=== PATIENT | female | born 1950 | race Caucasian/White ===

== ENCOUNTER 2019-03-28 14:41 | Emergency (ER) | payer MEDICARE ==
[~2019-03-28] VITALS: Ht 170.2 cm; Wt 83.5 kg
[2019-03-28 15:05] VITALS: Ht 170.2 cm; Wt 83.5 kg
[2019-03-28] MEDS ORDERED: SOD CHLORIDE 0.9% 1,000 ML IV STA (16:15)
[2019-03-28] MEDS ORDERED: morphine 4 MG/ML VIAL IV STA (16:15)
[2019-03-28] MEDS ORDERED: ONDANSETRON 4 MG INJ IV STA (16:15)
[2019-03-28] MEDS ORDERED: LOPE2CAP PO (18:34)
--- NOTE | 2019-03-28 18:35 | ERD ---
ER Documentation Chief Complaint Chief Complaint pt has diarhhea and weakness , unable to ambulate r/t weakness HPI Patient is a 68-year-old female with hypertension, seizures, and diabetes who presents with diarrhea. She had a physical at [facility] today and was sent to the ER because the PA was concerned about the frequency of diarrhea. She was having about 10 episodes per day. She had near syncope today. She had symptoms which started on Wednesday. She has diffuse weakness because of the diarrhea. [facility] in [place]. She has nausea but no vomiting. There is no blood in the diarrhea. There is no fevers. Upon review of old medical records this is the patient's first visit to the emergency department. ROS All systems reviewed and are negative except as per history of present illness. Medications Home Meds Active Scripts Loperamide Hcl* (Imodium*) 2 Mg Capsule, 2 MG PO .AFTER EA LOOSE BM PRN for DIARRHEA, #10 TAB Prov:NORIS LUCAS MD 03/28/19 Allergies Allergies: Coded Allergies: No Known Allergy (Unverified , 03/28/19) PMhx/Soc Positive for hypertension, seizures, and diabetes Physical Exam Vitals Vital Signs Date Temp Pulse Resp B/P (MAP) Pulse Ox O2 O2 Flow FiO2 Time Delivery Rate 03/28/19 98.6 86 22 127/54 100 15:05 (78) Physical Exam Const: No acute distress Head: Atraumatic Eyes: Normal Conjunctiva ENT: Normal External Ears, Nose and Mouth. Neck: Full range of motion. No meningismus. Resp: Clear to auscultation bilaterally Cardio: Regular rate and rhythm, no murmurs Abd: Soft, non tender, non distended. Normal bowel sounds Skin: No petechiae or rashes Back: No midline or flank tenderness Ext: No cyanosis, or edema Neur: Awake and alert Psych: Normal Mood and Affect Result Diagram: 03/28/19 1657 03/28/19 1657 Results 24 hrs Laboratory Tests Test 03/28/19 16:57 White Blood Count 9.1 10^3/ul Red Blood Count 4.34 10^6/ul Hemoglobin 12.4 g/dl Hematocrit 38.1 % Mean Corpuscular Volume 87.8 fl Mean Corpuscular Hemoglobin 28.6 pg Mean Corpuscular Hemoglobin Concent 32.5 g/dl Red Cell Distribution Width 12.4 % Platelet Count 420 10^3/UL Mean Platelet Volume 8.7 fl Immature Granulocytes % 0.400 % Neutrophils % 66.5 % Lymphocytes % 20.7 % Monocytes % 8.9 % Eosinophils % 2.8 % Basophils % 0.7 % Nucleated Red Blood Cells % 0.0 /100WBC Immature Granulocytes # 0.040 10^3/ul Neutrophils # 6.0 10^3/ul Lymphocytes # 1.9 10^3/ul Monocytes # 0.8 10^3/ul Eosinophils # 0.3 10^3/ul Basophils # 0.1 10^3/ul Nucleated Red Blood Cells # 0.0 10^3/ul Sodium Level 140 mmol/L Potassium Level 3.8 mmol/L Chloride Level 107 mmol/L Carbon Dioxide Level 22 mmol/L Anion Gap 11 Blood Urea Nitrogen 30 mg/dl Creatinine 1.93 mg/dl Est Glomerular Filtrat Rate mL/min 26 mL/min Glucose Level 105 mg/dl Calcium Level 9.7 mg/dl Total Bilirubin 0.5 mg/dl Direct Bilirubin 0.00 mg/dl Indirect Bilirubin 0.5 mg/dl Aspartate Amino Transf (AST/SGOT) 34 IU/L Alanine Aminotransferase (ALT/SGPT) 65 IU/L Alkaline Phosphatase 82 IU/L Troponin I < 0.012 ng/ml Total Protein 7.6 g/dl Albumin 3.7 g/dl Globulin 3.90 g/dl Albumin/Globulin Ratio 0.94 Lipase 98 U/L Current Medications Medications Dose Sig/Gayathri Start Time Status Last (Trade) Ordered Route PRN Stop Time Admin Dose Reason Admin Sodium 1,000 ml @ Q1H STAT 03/28/19 DC 03/28/19 Chloride 1,000 mls/hr IV 16:15 17:38 03/28/19 17:14 Morphine 4 mg ONCE STAT 03/28/19 DC Sulfate IV 16:15 (morphine) 03/28/19 16:16 Ondansetron 4 mg ONCE STAT 03/28/19 DC 03/28/19 HCl (Zofran IV 16:15 17:37 Inj) 03/28/19 16:16 Procedures/MDM EKG read by me: Rate/Rhythm: Regular rate and rhythm at a rate of 83 Intervals: Normal Impression: No evidence of ischemia or arrhythmia CT abdomen pelvis read by radiology. Ultrasound of the gallbladder read by radiology. Patient is a 68-year-old female presents with diarrhea. Laboratory studies were basically normal. CT scan shows gallstones and ultrasound confirmed gallstones without signs of cholecystitis. At this point I doubt sepsis. I doubt appendicitis, cholecystitis, pancreatitis, or bowel obstruction. The patient was given normal saline 1 L bolus. The patient will be discharged and can follow-up with the primary doctor within 24 to 48 hours. Departure Diagnosis: Primary Impression: Diarrhea Diarrhea type: unspecified type Qualified Codes: R19.7 - Diarrhea, unspecified Additional Impression: Acute weakness Condition: Fair Patient Instructions: Treating Diarrhea Referrals: Your doctor Additional Instructions: Call your primary care doctor TOMORROW for an appointment during the next 1-2 days.See the doctor sooner or return here if your condition worsens before your appointment time. NORIS LUCAS MD Mar 28, 2019 18:35
[2019-03-28 19:00] VITALS: BP 118/66; PULSE 83; RESP 17
== END 2019-03-28 19:00 | disposition home or self-care (01) ==
LOC: E/R 14:41
DX: R19.7 Diarrhea, unspecified (principal); I10 Essential (primary) hypertension; E11.9 Type 2 diabetes mellitus without complications; R53.1 Weakness
CPT/HCPCS: 36415; 74176; 76705; 80053; 83690; 84484; 85025; 93005; 96374; 99285; J2405; J7030; J2270